=== PATIENT | female | born 1940 | race Caucasian/White ===

== ENCOUNTER 2024-11-28 11:43 | Emergency (ER) | payer MEDICARE ==
[~2024-11-28] VITALS: Ht 167.6 cm; Wt 70.0 kg
[2024-11-28 12:15] LABS: BILIRUBIN, URINE NEGATIVE (negative); BLOOD/HGB, URINE NEGATIVE (Negative); KETONE, URINE NEGATIVE (Negative); LEUK ESTERASE, URINE NEGATIVE (negative); NITRITE, URINE NEGATIVE (negative)
[2024-11-28 12:35] LABS: BASOPHILS 1.1 % (0-2); EOSINOPHILS 0.9 % (0-6); HEMATOCRIT 41.5 % (35.0-50.0); LYMPHOCYTES 17.5 % (24-44); MCH 30.2 (27-36); MCHC 33.9 g/dl (30-36); MCV 89.2 fl (81-99); NEUTROPHILS 73.5 % (39-80); PLATELET COUNT 229 K/uL (140-440); RBC 4.65 M/ul (4.3-5.7); RDW 13.5 (10.5-15.0)
[2024-11-28] MEDS ORDERED: FAMOTIDINE20 MG PO (12:39)
[2024-11-28] MEDS ORDERED: CLOPIDOGREL75 MG PO (12:39)
[2024-11-28] MEDS ORDERED: PRAVASTATIN SOD40 MG PO (12:39)
[2024-11-28] MEDS ORDERED: EZETIMIBE10 MG PO (12:40)
[2024-11-28] MEDS ORDERED: PHENAZOPYRIDIN100 MG PO (12:40)
[2024-11-28] MEDS ORDERED: LISINOPRIL30 MG PO (12:40)
[2024-11-28] MEDS ORDERED: CIPROFLOXACIN500 MG PO (12:40)
[2024-11-28] MEDS ORDERED: MINOCYCLINE HC100 MG PO (12:40)
[2024-11-28] MEDS ORDERED: ONDANSETRON ODT4 MG PO (12:40)
[2024-11-28] MEDS ORDERED: NIFEDIPINE ER30 M1 PO (12:40)
[2024-11-28 12:53] LABS: ALBUMIN 3.6 g/dL (3.4-5.0); ALBUMIN/GLOBULIN RATIO 1.09 (1.1-2.4); BILIRUBIN, TOTAL 0.5 mg/dL (0.2-1.0); BUN/CREATININE RATIO 19.46 (6.0-28.6); CALCIUM 9.3 mg/dL (8.5-10.1); CREATININE, SERUM 1.13 mg/dL (0.55-1.02); PROTEIN, TOTAL 6.9 g/dL (6.4-8.2)
[2024-11-28 15:55] VITALS: BP 148/63
--- NOTE | 2024-11-29 10:11 | EKG ---
[facility] [address] [place], [place] [address] Signed Normal sinus rhythm Inferior infarct , age undetermined Cannot rule out Anterior infarct , age undetermined Abnormal ECG No previous ECGs available Confirmed by Jovana Carmichael MD ([id number]) on 11/29/2024 10:11:43 AM Electronically Signed By: JOVANA CARMICHAEL MD 11/29/24 101 PATIENT NAME: EMELY HAZEL Electrocardiogram DATE OF : 40 PHYSICIAN: JOVANA CARMICHAEL MD REPORT #: [id number] REPORT IS CONFIDENTIAL AND NOT TO BE RELEASED WITHOUT AUTHORIZATION
== END 2024-11-28 15:55 | disposition home or self-care (01) ==
LOC: ED 11:43
PROVIDERS: Emergency Medicine
DX: R53.1 Weakness (principal); Z79.899 Other long term (current) drug therapy; Z88.2 Allergy status to sulfonamides; Z88.0 Allergy status to penicillin; Z88.5 Allergy status to narcotic agent; Z88.8 Allergy status to other drugs, medicaments and biological substances
CPT/HCPCS: 36415; 51701; 71045; 80053; 81003; 85025; 93005; 93010; 99284-25